=== PATIENT | male | born 1990 | race Two or more races ===

== ENCOUNTER 2017-05-03 10:24 | Emergency (ER) | payer SELFPAY ==
[~2017-05-03] VITALS: Ht 180.3 cm; Wt 77.1 kg
[2017-05-03 10:43] VITALS: BP 144/84
== END 2017-05-03 12:09 | disposition home or self-care (01) ==
LOC: ER 10:24
DX: S83.8X2A Sprain of other specified parts of left knee, initial encounter (principal); X50.0XXA Overexertion from strenuous movement or load, initial encounter; Y93.89 Activity, other specified; Y99.8 Other external cause status; Y92.89 Other specified places as the place of occurrence of the external cause
CPT/HCPCS: 73562